=== PATIENT | male | born 1945 | race Caucasian/White ===

== ENCOUNTER → 2016-11-18 | Outpatient (CLI) | payer MEDICARE ==
[~2016-11-18] MED LIST: ACTOS; ACTOS PO; ASPIRIN; ASPIRIN PO; ASPIRIN325 M1 PO; ATENOLOL PO; B-121000 MC1 PO; BAYER CHEWABLE81 MG PO; CALTRATE PLUS T1 TAB PO; CERTAGEN PO; CLARITIN D PO; FOLIC ACID PO; GLUCOTROL PO; IMDUR; IMDUR PO; ISOSORBIDE DINI30 MG PO; LACTULOSE10 G/15 ML PO; LIBRIUM PO; LISINOPRIL PO; LISINOPRIL5 MG PO; LOPRESSOR PO; LORTAB 7.5-5001 TAB; LORTAB 7.5-5001 TAB PO; MAGNESIUM400 MG PO; MAXZIDE 75/50 T1 TAB; METFORMIN; METFORMIN PO; NORVASC; PATIENT'S PHARMACY; PRILOSEC; PRILOSEC PO; PROTONIX PO; TOPROL XL; TOPROL XL PO; VICODIN 5/500 T1 TAB PO; VITAMIN D31000 UNIT PO; WARFARIN SODIU7.5 M1 PO; ZETIA PO; [UNRECOGNIZED DRUG - OTHER]
--- NOTE | ~2016-11-18 | EKG ---
PATIENT: [facility] UNIT #: [id number] Ventricular Rate: 103 BPM Atrial Rate: 394 BPM QRS Duration: 134 ms Q-T Interval: 386 ms QTC Calculation(Bezet): 505 ms Calculated R Clifford: 87 degrees Calculated T Clifford: 0 degrees Diagnosis Line: Atrial fibrillation with rapid ventricular Diagnosis Line: response Diagnosis Line: Right bundle branch block Diagnosis Line: Abnormal ECG Diagnosis Line: No previous ECGs available Diagnosis Line: Confirmed by MIKAELA THORPE MD ([id number]) on 11/18/2016 Diagnosis Line: 11:00:28 PM INTERPRETING MD: ILA ADLER
[2016-11-18 08:07] LABS: HEMATOCRIT 45.7 % (38.0-50.0); HEMOGLOBIN 15.7 gm/dL (13.0-16.0); MEAN CELL VOLUME 88.7 FL (83-96); MEAN CORPUSCULAR HEMOGLOBIN 30.5 PG (28-34); MEAN CORPUSCULAR HGB CONC 34.4 g/dL (30-36); MEAN PLATELET VOLUME 8.4 FL (6.5-11.5); RED BLOOD COUNT 5.15 X10e (3.90-5.60); RED CELL DISTRIBUTION WIDTH 13.6 % (11.0-15.5); WHITE BLOOD COUNT 8.8 X10e3 (4.0-10.5)
[2016-11-18 08:17] LABS: INR 1.2; PARTIAL THROMBOPLASTIN TIME 34.1 SECONDS (23.5-31.3); PROTHROMBIN TIME (PATIENT) 12.7 SECONDS (9.6-11.5)
[2016-11-18 08:21] LABS: CALCIUM SERUM 9.3 mg/dL (8.4-10.2); CREATININE SERUM 1.4 mg/dL (0.6-1.4); GLOM FILT RATE Estimated 50.2 mL/min (>60); POTASSIUM 4.4 mmol/L (3.5-5.1)
== END | disposition home or self-care (01) ==
LOC: CCVL 07:19
PROVIDERS: Internal Medicine Cardiovascular Disease
PROC: 4A023N7 Measurement of Cardiac Sampling and Pressure, Left Heart, Percutaneous Approach (ICD-10-PCS; principal; 2016-11-18)
PROC: B211YZZ Fluoroscopy of Multiple Coronary Arteries using Other Contrast (ICD-10-PCS; 2016-11-18)
PROC: B215YZZ Fluoroscopy of Left Heart using Other Contrast (ICD-10-PCS; 2016-11-18)
DX: I48.91 Unspecified atrial fibrillation (principal); I25.119 Atherosclerotic heart disease of native coronary artery with unspecified angina pectoris; E66.01 Morbid (severe) obesity due to excess calories; Z68.39 Body mass index [BMI] 39.0-39.9, adult; Z79.899 Other long term (current) drug therapy; Z79.01 Long term (current) use of anticoagulants; R94.31 Abnormal electrocardiogram [ECG] [EKG]; Z82.49 Family history of ischemic heart disease and other diseases of the circulatory system; Z92.89 Personal history of other medical treatment; Z88.0 Allergy status to penicillin; Z88.8 Allergy status to other drugs, medicaments and biological substances
CPT/HCPCS: 36415; 80048; 85027; 85610; 85730; 93005; C1769; C1887; C1894; J1644; J2250; J3010

== ENCOUNTER → 2016-12-02 | Outpatient (CLI) | payer MEDICARE ==
[2016-12-02 10:20] LABS: BUN/CREATININE RATIO 9.09; CALCIUM SERUM 9.3 mg/dL (8.4-10.2); CREATININE SERUM 1.1 mg/dL (0.6-1.4); GLOM FILT RATE Estimated 67.2 mL/min (>60); POTASSIUM 4.5 mmol/L (3.5-5.1)
== END | disposition home or self-care (01) ==
LOC: CLAB 09:18
PROVIDERS: Internal Medicine Cardiovascular Disease
DX: R94.4 Abnormal results of kidney function studies (principal)
CPT/HCPCS: 36415; 80048